=== PATIENT | female | born 1970 | race Two or more races ===

== ENCOUNTER 2024-03-10 13:30 | Emergency (ER) | payer OTHER, SELFPAY ==
[2024-03-10 13:32] VITALS: BP 142/87
--- NOTE | 2024-03-10 14:41 | ED.GENMED ---
History of Present Illness
General
Chief Complaint: Weakness
Source: patient
Exam Limitations: none
Time Seen by Provider: 03/10/24 13:54
Nursing documentation reviewed up to this point in time: agreed with
History of Present Illness
History of Present Illness:
Patient is a 53-year-old Uzbek-speaking female(translation via RN who also is Uzbek-speaking) presents to the ER for evaluation. She was visiting her who is a patient upstairs here in the ICU and was sent for evaluation by the nurses.
Patient reported she had had pain in her left neck and left chest and left scapula since this morning. It has improved however because of this they wanted her evaluated. Patient does report she has 'heart issues .'she however does not want a be
evaluated and wants to go see . She does not want exam she does not want blood work.
Review of Systems
Review of Systems
Allergies reviewed?: Yes
All Other Systems: ROS reviewed and negative except as documented in HPI and ROS
Constitutional: Reports no symptoms
Cardiac: Reports chest pain
ABD/GI: Reports no symptoms
Musculoskeletal: Reports other (neck pain )
Skin: Reports no symptoms
Psychiatric: Reports no symptoms
Phy Exam
General Physical Exam
General Presentation: no apparent distress
Neurological Exam
Neurological Exam: alert
Musculoskeletal Exam
Musculoskeletal Exam: full ROM
Skin Exam
Skin Exam: normal color and warm/dry
Psychiatric Exam
Psychiatric Exam: normal mood/affect
Comment
comment:
pt declines exam
Course
Orders/Labs/Results
Orders:
Orders
03/10/24 13:39
Electrocardiogram (*1) Urgent
Reason for Study: Hypertension, Benign
EKG- Treatment ONCE
Vital Signs
Initial and Last Documented VS:
Initial Vital Signs
Temp Pulse Resp BP Pulse Ox
98.2 F 69 16 142/87 97
03/10/24 13:32 03/10/24 13:32 03/10/24 13:32 03/10/24 13:32 03/10/24 13:32
Last Documented Vital Signs
Temp Pulse Resp BP Pulse Ox
98.2 F 69 16 142/87 97
03/10/24 13:32 03/10/24 13:32 03/10/24 13:32 03/10/24 13:32 03/10/24 13:32
MDM/Problems Addressed
MDM/Problems Addressed:
53-year-old female was visiting her upstairs and was sent by nurses for evaluation of chest pain/neck pain. Patient however started walking out of the room and wanted to leave prior to my exam. I did speak with her and RN who was at
bedside was assisting with Uz[place] translation. Patient does not want any treatment she does not want to be evaluated in the ER she does mention she has 'cardiac issues,' but does not further state exactly what cardiac condition she has. She
reports pain has been improving and she wants to be with her . I did review with patient that I recommend further evaluation such as blood work /cardiac workup however patient declines. To review with patient it is possible that this to be
a life-threatening condition however she still declines at did want to sign out against medical advice. EKG was done prior to my exam and
Is normal sinus rhythm with a heart rate of 60. Triage blood pressure mildly elevated however heart rate in the 60s nonhypoxic afebrile respiratory rate of 16. Patient is in no acute distress and ambulated out of the ER with daughter at bedside.
*Critical Care Note
Total Time (30-74mins, 75-104mins- exclusive of procedures): Not Applicable
ED Attending Note
-
Portions of this chart may have been created with voice recognition software.� Occasional wrong word or��sound alike� substitutions may have occurred due to the inherent limitations of voice recognition software.
Discharge Plan
Departure
Patient Disposition: Against Medical Advice
Date of Disposition: 03/10/24
Time of Disposition: 14:36
Patient with high blood pressure during this ER visit?: Yes
Condition: Fair
Covid-19: Not Applicable
Discharge Problem:
Chest pain
Referrals:
NONE,* [Family Provider] -
Interventions
Interventions:
*Risk Screen - Suicide Last Done: 03/10/24 13:31
*General Assessment Last Done: 03/10/24 13:32
*Neglect/Abuse Screening Last Done: 03/10/24 14:47
ED- Fall Risk Assessment Last Done: 03/10/24 14:47
*ED COVID-19 Vaccine History Last Done: 03/10/24 13:32
*Nursing Disposition Last Done: 03/10/24 14:47
ED- Cardiac Assessment Last Done: 03/10/24 14:47
ED- Neurological Assessment Last Done: 03/10/24 14:47
ED- Pulmonary Assessment Last Done: 03/10/24 14:47
Discharge Date and Time
Discharge Date/Time: 03/10/24 14:48
Print Language: Uzbek
--- NOTE | 2024-03-10 14:41 | EDRN ---
Pt is Lao-speaking, in room with her daughter. This nurse's primary language is Lao and I spoke with patient, along with PA. Pt states she was upstairs with her , who is in ICU, was feeling unwell since this morning and just wanted
the nurses upstairs to check her blood pressure. Pt was sent to ED for eval. Pt insists on leaving the department to go be with her . Pt's symptoms since this morning are pain to left side of head, neck, chest, and upper back. Pt states she
has cardiac history with [place] and tachycardia, but unable to provide further history. Pt on Losartan and vitamins, no other daily meds. Pt states her chest pain is mostly gone and is now mostly in the upper back. Pt explained at length the risks of
leaving without further evaluation. Pt states she understands and is willing to take the risk. Pt signed AMA form and left accompanied by her daughter.
== END 2024-03-10 14:48 | disposition left against medical advice (07) ==
LOC: EMR 13:30
PROVIDERS: EMERGENCY PHYSICIAN Student in an Organized Health Care Education/Training Program
DX: R07.89 Other chest pain (principal); M54.2 Cervicalgia; I10 Essential (primary) hypertension
CPT/HCPCS: 99283; 93005